=== PATIENT | female | born 1950 | race Caucasian/White ===

== ENCOUNTER → 2024-04-22 | Outpatient (CLI) | payer OTHER, SELFPAY ==
[2024-04-22 10:50] LABS: Collection Type, Urine Clean Catch
[2024-04-22 11:31] LABS: Basophils % (Auto) 1 % (0-2.5); Eosinophils # (Auto) 0.2 Thou/mm3 (0.0-0.5); Eosinophils % (Auto) 2 % (0-10); Hematocrit 44.8 % (36.0-46.0); Hemoglobin 14.9 g/dL (12.0-16.0); Immature Granulocytes % (Auto) 0 % (0-0); Immature Granulocytes Auto 0.02 Thou/mm3 (0.00-0.00); Lymphocytes # (Auto) 1.7 Thou/mm3 (1.0-4.8); Lymphocytes % (Auto) 23 % (10-50); Mean Corpuscular HGB Conc 33.3 g/dl (31.0-37.0); Mean Corpuscular Hemoglobin 30.6 pg (25.0-35.0); Mean Corpuscular Volume 92 fL (80-100); Monocytes # (Auto) 0.5 Thou/mm3 (0.0-0.8); Monocytes % (Auto) 7 % (0-12); Neutrophils % (Auto) 68 % (37-80); Nucleated Red Blood Cell % 0 /100 WBC (0); Platelet Count 243 Thou/mm3 (140-440); RDW Standard Deviation 39.9 fL (36.4-46.3); Red Blood Count 4.87 Miln/mm3 (4.00-5.20); White Blood Count 7.4 Thou/mm3 (3.6-11.0)
[2024-04-22 11:48] LABS: Glucose Estimated Average 137 mg/dL (80-131); Hemoglobin A1C 6.4 % Hgb (4.8-6.0)
[2024-04-22 11:50] LABS: Alanine Aminotransferase 11 U/L (10-49); Albumin, Serum 4.1 gm/dL (3.4-4.8); Albumin/Globulin Ratio 2.2 (1.2-2.2); Alkaline Phosphatase 97 U/L (46-116); Anion Gap 4 (7-16); Aspartate Amino Transferase 13 U/L (0-34); BUN/Creatinine Ratio 26 Ratio (12-20); Bilirubin,Total 0.5 mg/dL (0.3-1.2); Blood Urea Nitrogen 18 mg/dL (9-23); Calcium 9.4 mg/dL (8.3-10.6); Calcium (Corrected) 9.4 mg/dL (8.5-10.1); Carbon Dioxide 29.9 mMol/L (20.0-31.0); Cardiac Risk Estimate 4.9 RATIO (3.7-5.6); Chloride 103 mMol/L (98-107); Cholesterol 246 mg/dL (132-200); Creatinine (Component) 0.7 mg/dL (0.6-1.3); Globulin 1.9 gm/dL (2.3-3.5); Glucose 127 mg/dL (74-106); HDL Cholesterol 50 mg/dL (40-60); LDL Cholesterol,Calculated 152 mg/dL (0-130); Osmolality,Calculated 277 (275-295); Sodium 137 mMol/L (136-145); Triglycerides 218 mg/dL (30-150); eGFR > 60 See Note
[2024-04-22 11:51] LABS: Creatinine MALB Rnd Ur 140 mg/dL (30-125); Microalbumin Creat Ratio 11 mg/gCrea (<30); Microalbumin, Random Urine 15 mg/L (0-300)
[2024-04-22 12:00] LABS: Bilirubin,Urine Negative (Negative); Blood,Urine Trace (Negative); Clarity,Urine Turbid (Clear/Hazy); Color,Urine Yellow (Lt Yel-Yel); Glucose, Urine Negative (Negative); Ketones,Urine Negative (Negative); Leukocyte Esterase,Urine Positive (Negative); Nitrite,Urine Negative (Negative); PH,Urine 6.5 (5.0-7.0); Protein,Urine 1+ (Neg - Trace); RBC,Urine 12 /hpf (0-3); Specific Gravity,Urine 1.027 (1.001-1.035); Squamous Epithelial Cell,Urine 47 /hpf (0-5); WBC,Urine 32 /hpf (0-5)
== END | disposition home or self-care (01) ==
LOC: COPL 10:16
PROVIDERS: PCP Internal Medicine; Referring Provider Internal Medicine; Visit Provider Internal Medicine
DX: E78.5 Hyperlipidemia, unspecified (principal); I10 Essential (primary) hypertension; R73.03 Prediabetes
CPT/HCPCS: 36415; 80053; 80061; 81001; 82043; 82570; 83036; 84550; 85025

== ENCOUNTER 2024-06-04 07:48 | Outpatient (AMB) | payer OTHER, SELFPAY ==
[2024-06-04 08:05] VITALS: BP 159/96; PULSE 85; RESP 19; TEMP 36.2; O2SAT 95; BMI 40.9
--- NOTE | 2024-06-04 08:05 | ORTHONT_ITS ---
Vital signs 06/04/24 08:05 Height 1.65 m Height Method Stated Weight 111.612 kg Weight Measurement Method Standing Scale BMI 40.9 BP 159/96 H Blood Pressure Source Automatic Cuff Blood Pressure Location Right Upper Arm Position Sitting Respiration 19 Pulse 85 Pulse Source Monitor Temp 97.1 F Temp Source Temporal Artery Scan Pulse Oximetry (%) 95 Oxygen Delivery Method Room Air Med/Allergies Allergies & Medications Allergies NKA* Allergy (Uncoded 06/04/24 08:06) Medication Reconciliation atenolol 50 mg tablet 50 mg PO DAILY ##0 07/17/12 [History Confirmed 06/04/24] atenolol 25 mg tablet 25 mg PO QDAY 06/04/24 [History Confirmed 06/04/24] clonidine HCl 0.1 mg tablet 0.1 mg PO QHS 06/04/24 [History Confirmed 06/04/24] glipizide 5 mg tablet 5 mg PO QDAY 06/04/24 [History Confirmed 06/04/24] lisinopril 10 mg-hydrochlorothiazide 12.5 mg tablet 1 tab PO QDAY 06/04/24 [History Confirmed 06/04/24] Exam Exam Breathing is nonlabored. Patient has a normal mood and affect. Bilateral extremities were evaluated and demonstrates sensation intact to light touch. Palpable pedal pulses are present. No significant edema is present. Bilateral hips were examined. The patient has no pain with log roll of the hips. Internal rotation to 30 degrees and external rotation to 30 degrees is painless. Negative FADIR. Left knee was examined today. The left knee is in reasonable alignment. Range of motion from 0-120 degrees. Knee is stable to varus and valgus as well as AP translation with <5mm. Patient has a negative McMurrays. There is no pain with patellofemoral compression and no crepitus noted. The knee is nontender to palpation. The right knee was also examined. The right knee is in varus alignment. Range of motion from 0-115 degrees. Knee is stable to varus and valgus as well as AP translation with <5mm. Patient has a negative McMurrays. There is no pain with patellofemoral compression and no crepitus noted. The knee is tender to palpation medially. X-rays were reviewed from [facility] imaging. This demonstrates complete obliteration of the medial joint space with varus alignment Assessment and Plan Problem List (1) Arthritis of right knee: Status: Acute Plan: Patient is a 74-year-old female with right knee pain and right knee arthritis. We discussed nonoperative and operative options. We would proceed with conservative treatment at this time. She would like to try injections which is reasonable. Recommend knee cortisone injection as patient would like to proceed with conservative treatment at this time. The risks and benefits of the procedure were reviewed with the patient and patient gave verbal consent to continue with the procedure. Procedure: performed by Dr. Ramirez Using sterile technique the Right knee was thoroughly prepped with alcohol, and approximately 1 cc of Kenalog 40 mg/mL and 4 cc of 1% lidocaine was injected without resistance into the medial tibial femoral joint space. The patient tolerated the procedure. Advanced Care Planning Discussion Advance care planning discussed with:: patient Office Procedures GNS Level of Care Nursing/Assessment Patient Status: Initial/New Patient Nursing Assessment/Reassesment: Medication Reconciliation, Update PMH in EMR and Vital Signs Coordination of Care: Complex Care/Chronic Disease 5 or more, Education Complex Pt/Fam, Consent,records obtained, informed consent and Staff clarify orders New Patient Charge New Patient Point Assignment: 1099 New Patient Point Charge: SHRINKER Level 3 ([id number]) Surgical Proc/IM SQ injection Major Surgical Procedure: Yes (RIGHT KNEE INJECTION) Medication Given Medication Given Medication Given: Yes Documented Dose Given: 4 Route: Infiitration Medication Given Medication Given Medication Given: Yes Documented Dose Given: 1 Route: Infiitration Office Meds Xylocaine 10 mg/mL (1 %) injection solution Performing Provider: Jc Ramirez MD Performing Location: [facility] [facility] [employer] Administered by: Jc Ramirez MD on 06/04/24 08:20 Dose Route Admin Location Dispensed Lot Number Expiration Date [facility] Trade [employer] Official 20 mL Infiltration 20 mL [id number] 07/11/27 32881-836-62 [facility] triamcinolone acetonide 40 mg/mL suspension for injection Performing Provider: Jc Ramirez MD Performing Location: [facility] [facility] Administered by: Jc Ramirez MD on 06/04/24 08:20 Dose Route Admin Location Dispensed Lot Number Expiration Date [facility] [employer] Official 40 mg intra-articular KNEE 1 mL [id number] 01/09/26 3484-5079-53 [facility] Intake Visit Data Collection New Patient or Established: Established Patient (seen at [facility] within 3 years) 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 Do You Feel Safe at Home: Yes Questionairres Past Medical History Past Medical History Have you ever been diagnosed with any of the following: Cardiology Problems Hypertension: Yes Respiratory Problems Smoking: No Smoking Exposure: No Psychologic Problems Depression: No Surgical History Additional Surgical History: GALLBLADDER REMOVAL Subjective Visit Visit for: new patient and knee (RIGHT) Immunization / Flu Flu Vaccine in the Last 12 Months: No Flu Vaccine Exclusion Criteria: No Exclusion Criteria History of Present Illness Chief complaint: RIGHT KNEE PAIN Date of 1st surgery (if applicable): 6 MONTHS AGO;FELL She will female with right knee pain. This been a well. She reports the pain is primarily medial. She has tried anti-inflammatories and Tylenol. She is never any injections. She reports she is still functioning and walking. Personal History Red flag PMH: none BMI Counceling provided: Yes Pain Pain level (0-10): 5 Pain duration: INTERMITTENT Pain location: inside (medial) and outside (lateral) Pain quality: sharp and burning Pain timing: night, increases with activity and stairs Associated signs & symptoms: weakness Ambulatory data Ambulatory device: none Treatments Improvement with previous injections: No Improvement with PT: No Improvement with NSAIDS: yes Review of Systems Review of Systems: All systems negative unless otherwise noted in HPI.
== END 2024-06-04 08:23 | disposition home or self-care (01) ==
LOC: HODSRG 07:48
PROVIDERS: PCP Internal Medicine; Referring Provider Internal Medicine; Supervising Provider Orthopaedic Surgery Adult Reconstructive Orthopaedic Surgery; Visit Provider Orthopaedic Surgery Adult Reconstructive Orthopaedic Surgery
DX: M17.11 Unilateral primary osteoarthritis, right knee (principal); M25.561 Pain in right knee; I10 Essential (primary) hypertension
CPT/HCPCS: 20610; 99203; J3301; J3490; G0463

== ENCOUNTER 2024-09-26 08:24 | Outpatient (AMB) | payer OTHER, SELFPAY ==
--- NOTE | 2024-09-26 08:38 | PD.ORTHCLVIS ---
Vital signs 09/26/24 08:39 Height 1.65 m Height Method Stated Weight 113.993 kg Weight Measurement Method Standing Scale BMI 41.8 BP 109/73 Blood Pressure Source Automatic Cuff Blood Pressure Location Left Upper Arm Position Sitting Respiration 19 Pulse 93 Pulse Source Monitor Temp 97.6 F Temp Source Temporal Artery Scan Pulse Oximetry (%) 93 L Oxygen Delivery Method Room Air Med/Allergies Allergies & Medications Allergies NKA* Allergy (Uncoded 09/26/24 08:40) Medication Reconciliation atenolol 25 mg tablet 25 mg PO QDAY 06/04/24 [History Confirmed 09/26/24] clonidine HCl 0.1 mg tablet 0.1 mg PO QHS 06/04/24 [History Confirmed 09/26/24] glipizide 5 mg tablet 5 mg PO QDAY 06/04/24 [History Confirmed 09/26/24] lisinopril 10 mg-hydrochlorothiazide 12.5 mg tablet 1 tab PO QDAY 06/04/24 [History Confirmed 09/26/24] Exam Exam Breathing is nonlabored. Patient has a normal mood and affect. Bilateral extremities were evaluated and demonstrates sensation intact to light touch. Palpable pedal pulses are present. No significant edema is present. Bilateral hips were examined. The patient has no pain with log roll of the hips. Internal rotation to 30 degrees and external rotation to 30 degrees is painless. Negative FADIR. Left knee was examined today. The left knee is in reasonable alignment. Range of motion from 0-120 degrees. Knee is stable to varus and valgus as well as AP translation with <5mm. Patient has a negative McMurrays. There is no pain with patellofemoral compression and no crepitus noted. The knee is nontender to palpation. The right knee was also examined. The right knee is in varus alignment. Range of motion from 0-115 degrees. Knee is stable to varus and valgus as well as AP translation with <5mm. Patient has a negative McMurrays. There is no pain with patellofemoral compression and no crepitus noted. The knee is tender to palpation medially. X-rays were reviewed from [facility]. This demonstrates complete obliteration of the medial joint space with varus alignment Assessment and Plan Problem List (1) Arthritis of right knee: Status: Acute Plan: Patient is a 74-year-old female with right knee pain and right knee arthritis. We discussed nonoperative and operative options. We would proceed with conservative treatment at this time. She would like to try injections which is reasonable. Recommend knee cortisone injection as patient would like to proceed with conservative treatment at this time. The risks and benefits of the procedure were reviewed with the patient and patient gave verbal consent to continue with the procedure. Procedure: performed by Dr. Ramirez Using sterile technique the Right knee was thoroughly prepped with alcohol, and approximately 1 cc of Kenalog 40 mg/mL and 4 cc of 1% lidocaine was injected without resistance into the medial tibial femoral joint space. The patient tolerated the procedure. Advanced Care Planning Discussion Advance care planning discussed with:: patient Office Procedures GNS Level of Care Nursing/Assessment Patient Status: Established Patient Nursing Assessment/Reassesment: Medication Reconciliation, Update PMH in EMR and Vital Signs Coordination of Care: Complex Care and Chronic Disease 1-5, Education Complex Pt/Fam, Consent,records obtained, informed consent, Results/Orders obtained and Staff clarify orders Established Patient Charge Established Patient Point Assignment: 95 Established Patient Point Charge: EP Level 3 (80-115) Surgical Proc/IM SQ injection Major Surgical Procedure: Yes (KNEE INJECTION) Medication Given Medication Given Medication Given: Yes Documented Dose Given: 4 Route: Infiitration Medication Given Medication Given Medication Given: Yes Documented Dose Given: 1 Route: Infiitration Office Meds Xylocaine 10 mg/mL (1 %) injection solution Performing Provider: Jc Ramirez MD Performing Location: [facility] Administered by: Jc Ramirez MD on 09/26/24 09:13 Dose Route Admin Location Dispensed Lot Number Expiration Date [facility] Installation Supervisor 20 mL Infiltration 20 mL [id number] 12/11/27 44562-841-27 [facility] triamcinolone acetonide 40 mg/mL suspension for injection Performing Provider: Jc Ramirez MD Performing Location: [facility] Administered by: Jc Ramirez MD on 09/26/24 09:13 Dose Route Admin Location Dispensed Lot Number Expiration Date [facility] Installation Supervisor 40 mg intra-articular KNEE 1 mL [id number] 04/11/26 67403-056-02 JOSE HEALY MA Intake Visit Data Collection New Patient or Established: Established Patient (seen at [facility] within 3 years) Reason for Visit:: RIGHT KNEE INJ F/U Seen by Clinical Staff ONLY (RN/MA): No PCP or OBGYN visit in last 3 months: Yes Hx Now: No Do You Feel Safe at Home: Yes Authorities Contacted: N/A Questionairres Past Medical History Past Medical History Have you ever been diagnosed with any of the following: Cardiology Problems Hypertension: Yes Respiratory Problems Smoking: No Smoking Exposure: No Psychologic Problems Depression: No Surgical History Additional Surgical History: GALLBLADDER REMOVAL Subjective Visit Visit for: follow up visit, knee and injections Immunization / Flu Flu Vaccine in the Last 12 Months: No Flu Vaccine Exclusion Criteria: No Exclusion Criteria History of Present Illness Chief complaint: RIGHT KNEE PAIN Date of 1st surgery (if applicable): 6 MONTHS AGO;FELL She will female with right knee pain. This been a well. She reports the pain is primarily medial. She has tried anti-inflammatories and Tylenol. She reports that she did well with the last injection and would like a new one today Personal History Red flag PMH: none BMI Counceling provided: Yes Pain Pain level (0-10): 5 Pain duration: INTERMITTENT Pain location: inside (medial) and outside (lateral) Pain quality: sharp and burning Pain timing: night, increases with activity and stairs Associated signs & symptoms: weakness Ambulatory data Ambulatory device: none Treatments Number of previous injections: 1 Improvement with previous injections: Yes Improvement with PT: No Improvement with NSAIDS: yes Review of Systems Review of Systems: All systems negative unless otherwise noted in HPI.
[2024-09-26 08:39] VITALS: BP 109/73; PULSE 93; RESP 19; TEMP 36.4; O2SAT 93; BMI 41.8
== END 2024-09-26 08:51 | disposition home or self-care (01) ==
LOC: HODSRG 08:24
PROVIDERS: PCP Internal Medicine; Referring Provider Internal Medicine; Supervising Provider Orthopaedic Surgery Adult Reconstructive Orthopaedic Surgery; Visit Provider Orthopaedic Surgery Adult Reconstructive Orthopaedic Surgery
DX: M17.11 Unilateral primary osteoarthritis, right knee (principal); M25.561 Pain in right knee; I10 Essential (primary) hypertension
CPT/HCPCS: 20610; 99213; J3301; J3490; G0463